=== PATIENT | female | born 1965 | race Caucasian/White ===

== ENCOUNTER → 2016-12-06 | Outpatient (CLI) | payer MEDICARE, MEDICAID | END | disposition short-term general hospital (02) | LOC: CLORTH 11-22 08:57 | DX: M75.101 Unspecified rotator cuff tear or rupture of right shoulder, not specified as traumatic (principal); M19.011 Primary osteoarthritis, right shoulder; M75.81 Other shoulder lesions, right shoulder; M85.811 Other specified disorders of bone density and structure, right shoulder ==

== ENCOUNTER 2017-01-17 06:40 | Day surgery (SDC) | payer MEDICARE, MEDICAID ==
[~2017-01-17] VITALS: Ht 147.3 cm; Wt 83.9 kg
== END 2017-01-17 13:30 | disposition short-term general hospital (02) ==
LOC: SURGOP 06:40
PROC: 0PB94ZZ Excision of Right Clavicle, Percutaneous Endoscopic Approach (ICD-10-PCS; principal; 2017-01-17)
PROC: 0RBJ4ZZ Excision of Right Shoulder Joint, Percutaneous Endoscopic Approach (ICD-10-PCS; 2017-01-17)
PROC: 0LB14ZZ Excision of Right Shoulder Tendon, Percutaneous Endoscopic Approach (ICD-10-PCS; 2017-01-17)
DX: M75.101 Unspecified rotator cuff tear or rupture of right shoulder, not specified as traumatic (principal); M19.011 Primary osteoarthritis, right shoulder; S43.491A Other sprain of right shoulder joint, initial encounter; M75.21 Bicipital tendinitis, right shoulder; E11.65 Type 2 diabetes mellitus with hyperglycemia; E11.22 Type 2 diabetes mellitus with diabetic chronic kidney disease; N18.3 Chronic kidney disease, stage 3 (moderate); E66.9 Obesity, unspecified; E78.5 Hyperlipidemia, unspecified; M19.90 Unspecified osteoarthritis, unspecified site; F32.9 Major depressive disorder, single episode, unspecified; F17.210 Nicotine dependence, cigarettes, uncomplicated; Z68.38 Body mass index [BMI] 38.0-38.9, adult; Z88.1 Allergy status to other antibiotic agents; Z88.5 Allergy status to narcotic agent; Z91.011 Allergy to milk products; Z91.030 Bee allergy status; Z91.040 Latex allergy status; Z79.899 Other long term (current) drug therapy; Z90.49 Acquired absence of other specified parts of digestive tract; Z90.710 Acquired absence of both cervix and uterus; Z90.722 Acquired absence of ovaries, bilateral; Z98.890 Other specified postprocedural states
CPT/HCPCS: C1713; J0690; J2250; J2270; J2405; J2710; J2795; J3010

== ENCOUNTER → 2017-01-31 | Outpatient (CLI) | payer MEDICARE, MEDICAID | END | disposition short-term general hospital (02) | LOC: CLORTH 10:10 | DX: Z47.89 Encounter for other orthopedic aftercare (principal) ==

== ENCOUNTER → 2017-02-28 | Outpatient (CLI) | payer MEDICARE, MEDICAID | END | disposition short-term general hospital (02) | LOC: CLORTH 11:21 | DX: Z47.89 Encounter for other orthopedic aftercare (principal) ==